=== PATIENT | female | born 2005 | race Caucasian/White ===

== ENCOUNTER 2023-12-29 17:02 | Emergency (ER) | payer OTHER, SELFPAY ==
[2023-12-29 17:08] VITALS: BP 124/85
--- NOTE | 2023-12-29 20:26 | ED.GENMED ---
History of Present Illness
General
Chief Complaint: Skin Surface Trauma
Source: patient and family
Exam Limitations: none
Time Seen by Provider: 12/29/23 18:46
Nursing documentation reviewed up to this point in time: agreed with
Travel History
Have you had any contact with someone who has COVID-19?: No
Do you have any symptoms of coronavirus? Fever > 100 degrees, chills, cough, shortness of breath, sore throat, loss of taste or smell, muscle aches, or headache?: No
History of Present Illness
History of Present Illness:
18-year-old female without significant past medical history presenting to the emergency department after swimming to the edge of a pool prior to arrival. Did not lose consciousness no nausea vomiting does have some discomfort to her nasal bridge at
this point. This occurred roughly 4 hours prior to my assessment. Denies additional concerns. She claims that she is up-to-date with her tetanus shot.
Review of Systems
Review of Systems
Allergies reviewed?: Yes
All Other Systems: ROS reviewed and negative except as documented in HPI and ROS
Phy Exam
Physical Exam
Physical Exam:
GENERAL: Alert , in no apparent distress
EYE: pupils equal and reactive
NECK: Supple, no significant adenopathy.
ENT: Very superficial abrasion to the central forehead roughly 1 cm in diameter laceration surrounded by abrasion to the nasal bridge roughly 1 cm in diameter circular in shape o/p clr, mmm.
CARDIAC: Regular rate and rhythm .
LUNGS: Clear breath sounds bilaterally, no acute respiratory distress, no wheezes/rales/rhonchi
ABDOMEN: Soft, without focal tenderness, no r/g, no cvat
NEUROLOGICAL: Alert and oriented, no focal neuro deficits
SKIN: Warm and dry, skin intact.
MUSCULOSKELETAL: No edema, well perfused.
PSYCH: Normal and appropriate interaction.
Course
Vital Signs
Initial and Last Documented VS:
Initial Vital Signs
Temp Pulse Resp BP Pulse Ox
98.6 F 90 17 124/85 99
12/29/23 17:08 12/29/23 17:08 12/29/23 17:08 12/29/23 17:08 12/29/23 17:08
Last Documented Vital Signs
Temp Pulse Resp BP Pulse Ox
98.6 F 90 17 124/85 99
12/29/23 17:08 12/29/23 17:08 12/29/23 17:08 12/29/23 17:08 12/29/23 17:08
Procedures
Laceration Closure
Anterior Nose:
Status of Wound: clean
Size of Wound in cm: 1
Description of Wound Edges: ragged and surrounded by abrasion
Preparation: cleaned with saline
Anesthesia: 1% Lidocaine
Revision/Debridement: routine- no revision and irrigate-direct pressure
Wound exploration: explored to base- no FB and no tendon involvement
Type of Closure: single layer closure
Skin Closure Material: 6-0 nylon
Number of sutures: 3
MDM/Problems Addressed
MDM/Problems Addressed:
18-year-old female presenting to the emergency department after swimming directly into the edge of a pool. She sustained a laceration surrounded by abrasion to the nasal bridge. No evidence of significant nasal fracture no nasal septal hematoma
she did not lose consciousness no nausea vomiting normal neurologic examination no neck pain no signs of emergent intracranial injury or neck injury. No additional concerning symptoms or concerns otherwise. Laceration was in the central portion
deep to the subcutaneous tissue therefore the area was cleaned anesthetized and sutured with 3 nonabsorbable sutures. Advised for removal in 7 days precautions given otherwise up-to-date with tetanus shot. Very low risk for infection.
*Critical Care Note
Total Time (30-74mins, 75-104mins- exclusive of procedures): Not Applicable
ED Attending Note
-
Portions of this chart may have been created with voice recognition software.� Occasional wrong word or��sound alike� substitutions may have occurred due to the inherent limitations of voice recognition software.
Discharge Plan
Departure
Patient Disposition: Home (Routine Discharge)
Date of Disposition: 12/29/23
Time of Disposition: 20:26
Patient with high blood pressure during this ER visit?: No
Condition: Good
Covid-19: Not Applicable
Discharge Problem:
Laceration of nose
Instructions: Laceration Repair With Stitches (DC)
Referrals:
Aj Toro MD [Family Provider] -
Activity Restrictions/Additional Instructions:
You came to the emergency department today with concerns of a laceration to your nose. This was cleaned thoroughly and closed with 3 nonabsorbable sutures. Please keep the area clean covered and follow-up in 7 days for suture removal. Return to
the emergency department for any worsening, new or concerning symptoms.
Interventions
Interventions:
*Risk Screen - Suicide Last Done: 12/29/23 18:01
*General Assessment Last Done: 12/29/23 18:01
*Neglect/Abuse Screening Last Done: 12/29/23 18:01
ED- Fall Risk Assessment Last Done: 12/29/23 19:12
*ED COVID-19 Vaccine History Last Done: 12/29/23 18:01
*Nursing Disposition Last Done: 12/29/23 20:39
ED-Skin Assessment Last Done: 12/29/23 19:12
Discharge Date and Time
Discharge Date/Time: 12/29/23 20:39
== END 2023-12-29 20:39 | disposition home or self-care (01) ==
LOC: EMR 17:02
PROVIDERS: EMERGENCY PHYSICIAN Emergency Medicine; FAMILY PHYSICIAN Internal Medicine
DX: S01.21XA Laceration without foreign body of nose, initial encounter (principal); W22.042A Striking against wall of swimming pool causing other injury, initial encounter
CPT/HCPCS: 99284; 12051